=== PATIENT | female | born 2000 | race Caucasian/White ===

== ENCOUNTER 2021-06-10 11:04 | Emergency (ER) | payer OTHER, SELFPAY ==
[2021-06-10 11:26] VITALS: BP 128/99; PULSE 82; RESP 16; TEMP 36.9; O2SAT 100
--- NOTE | 2021-06-10 11:47 | ED.GENADULT ---
HPI - General Adult General Chief complaint: Skin/Abscess/Foreign Body Stated complaint: rash on lips Time Seen by Provider: 06/10/21 11:47 Source: patient Mode of arrival: ambulatory Limitations: no limitations History of Present Illness HPI narrative: 21-year-old female patient presents to the [facility] with complaints of a rash on lips x4 days. Patient states she has had fever blisters before in the past but nothing this bad. Patient states they are somewhat painful. Denies any discharge from them at this time. Related Data Allergies Allergy/AdvReac Type Severity Reaction Status Date / Time No Known Allergies Allergy Verified 06/10/21 11:27 Review of Systems Review of Systems: Narrative: CONSTITUTIONAL: Denies fever, chills, or sweats. EYES: Denies visual changes, redness, or discharge. ENT: Denies rhinorrhea, congestion, sore throat, or otalgia. CARDIOVASCULAR: Denies chest pain, palpitations, or edema. RESPIRATORY: Denies cough or dyspnea. GASTROINTESTINAL: Denies abdominal pain, nausea, vomiting, or diarrhea. GENITOURINARY: Denies dysuria or hematuria. SKIN: Positive painful rash to bottom lip x4 days MUSCULOSKELETAL: Denies back pain, joint pain, or myalgia. NEUROLOGIC: Denies headache, numbness, or weakness. PSYCHIATRIC: Denies anxiety or depression. PMFSH Comments At the time of my signature I agree with nursing past medical history, surgical, social, and family history. There is no relevant family history pertinent to the presenting complaint. Exam Narrative: Exam Narrative: GENERAL: Well-appearing, well-nourished, and in no acute distress. HEAD: Normocephalic, atraumatic. EYES: PERRLA and EOMI. ENT: Nares clear, no rhinorrhea or epistaxis. Mucous membranes moist. Patient has blistery rash noted to the bottom lip with slight swelling and erythema and tenderness to the touch. There is no open sores or draining noted at this time. There are about 3 blisters present along the lower lip. No obvious blisters noted in the mucosal or posterior pharynx. NECK: Supple. No lymphadenopathy CHEST: Clear to auscultation. No respiratory distress. HEART: Regular rate and rhythm. No murmur heard. Normal peripheral pulses. ABDOMEN: Soft, nontender, nondistended, normal active bowel sounds. EXTREMITIES: Normal range of motion. No edema. SKIN: Warm, dry, no rash. NEURO: No focal deficits. Alert and oriented x3. Course Vital Signs Vital signs: Vital Signs Temperature 36.9 C 06/10/21 11:26 Pulse Rate 82 06/10/21 11:26 Respiratory Rate 16 06/10/21 11:26 Blood Pressure 128/99 H 06/10/21 11:26 Pulse Oximetry 100 06/10/21 11:26 Temperature 36.9 C 06/10/21 11:26 Pulse Rate 82 06/10/21 11:26 Respiratory Rate 16 06/10/21 11:26 Blood Pressure 128/99 H 06/10/21 11:26 Pulse Oximetry 100 06/10/21 11:26 Vital signs reviewed Medical Decision Making Differential Diagnosis Differential Diagnosis: Differential diagnosis: Contact dermatitis, poison walter, poison sumac, psoriasis, eczema, allergic reaction, drug reaction, scabies, tinea syphilis, lung disease, viral exanthema, pityriasis, erythema multiforme. Plan of care for patient is to discharge her home with antivirals for herpes simplex 1 infection. Discussed with patient that she should not be sharing any drinks, kissing or having anybody touched the site at this time because she is considered contagious. Also discussed with patient that she should follow-up with her primary doctor and possibly get something for when these infections occur again so that she can treat them more rapidly. Patient is aware the plan of care at this time denies any other questions or concerns at this time. Vital Signs Vital Signs: Vital Signs Temperature 36.9 C 06/10/21 11:26 Pulse Rate 82 06/10/21 11:26 Respiratory Rate 16 06/10/21 11:26 Blood Pressure 128/99 H 06/10/21 11:26 Pulse Oximetry 100 06/10/21 11:26 Temperature 36.9 C 06/10/21 11:26
== END 2021-06-10 12:05 | disposition home or self-care (01) ==
PROVIDERS: Emergency Provider Nurse Practitioner Family
DX: B00.1 Herpesviral vesicular dermatitis (principal)
CPT/HCPCS: 99213; G0463

== ENCOUNTER 2022-11-21 14:31 | Emergency (ER) | payer OTHER, SELFPAY ==
--- NOTE | 2022-11-21 15:59 | PC.NURSE ---
1st call [phone], no answer 2nd call [phone], no answer. patient left without being seen
== END 2022-11-21 17:01 | disposition left against medical advice (07) ==
DX: Z53.21 Procedure and treatment not carried out due to patient leaving prior to being seen by health care provider (principal)
CPT/HCPCS: 99199